=== PATIENT | male | born 1970 | race Caucasian/White ===

== ENCOUNTER 2020-09-26 21:07 | Emergency (ER) | payer OTHER ==
[2020-09-27 02:28] LABS: Absolute Lymphocytes (CBC) 2.7 K/uL (0.7-4.9); Basophils % 1.1 % (0-1.3); Hematocrit 47.9 % (39.6-49.0); Lymphocytes % 25.5 % (15.3-44.8); MPV 7.5 fL (7.6-11.3); Protime INR 0.98; RBC Red Blood Cell Count 5.54 M/uL (4.33-5.43)
[2020-09-27 02:44] LABS: ALT/SGPT 40 U/L (12-78); AST/SGOT 27 U/L (15-37); Albumin 3.6 g/dL (3.4-5.0); Alkaline Phosphatase 75 U/L (45-117); BUN Blood Urea Nitrogen 15 mg/dL (7-18); Bicarbonate 30 mmol/L (21-32); Bilirubin Direct < 0.1 mg/dL (0-0.2); Bilirubin Total 0.4 mg/dL (0.2-1.0); Glucose Level 84 mg/dL (74-106); Magnesium 2.1 mg/dL (1.8-2.4); NT PRO-BNP 20 pg/mL (<125); Protein, Total 7.3 g/dL (6.4-8.2); Sodium Level 142 mmol/L (136-145); Troponin (Emerg Dept Use Only) < 0.02 ng/mL (0.0-0.045)
--- NOTE | 2020-09-27 07:57 | RAD REPORT ---
EXAM DESCRIPTION: US - Extremity Venous Uni Ltd - 09/27/2020 7:06 am CLINICAL HISTORY: PAIN, swelling COMPARISON: None. TECHNIQUE: Real-time sonographic evaluation of the right lower extremity deep venous systems was per formed. FINDINGS: Normal compressibility, flow augmentation, phasic flow and spontaneous flow are identified in the right lower extremity common femoral, superficial femoral, popliteal and posterior tibial vei ns. No intraluminal filling defects seen. IMPRESSION: No DVT in the right lower extremity.
--- NOTE | 2020-09-27 07:59 | EKG ---
Test Date: 2020-09-27 Test Time: 02:04:14 [employer] Trader: MEASUREMENT RESULTS: Intervals: Rate: 64 [place]: 154 QRSD: 94 QT: 396 QTc: 408 [place]: P: 39 NJ: 154 QRS: 59 T: 35 INTERPRETIVE STATEMENTS: Normal sinus rhythm Normal ECG No previous ECG available for comparison Electronically Signed On 09-27-20 07:57:33 CDT by Keith Frankel
--- NOTE | 2020-09-27 07:59 | RAD REPORT ---
EXAM DESCRIPTION: RAD - Chest Single View - 09/27/2020 2:04 am CLINICAL HISTORY: COUGH COMPARISON: None TECHNIQUE: AP portable chest image was obtained 09/27/2020 2:04 am . FINDINGS: Exam is limited by portable technique, shallow inspiration and large body habitus. No tere pheral mass or consolidations seen. Stranding is more prominent in the right base. On a baseline stud y a right base infiltrate cannot be excluded. Pericardial fat pads contribute to lung base density. F ailure or volume overload are not suspected. Heart and vasculature are normal. No measurable pleural effusion and no pneumothorax. No acute bony abnormality seen. No acute aortic findings suspected. IMPRESSION: Increased interstitial stranding in the right lung base on a baseline examination. As a baseline study, infiltrate and atelectasis in the right base can have a similar appearance.
--- NOTE | 2020-09-27 17:53 | EDPHYS ---
Physician Documentation [facility] Name: Meliton Morales II Age: 49 yrs Sex: Male : 1970 Arrival Date: 09/26/2020 Time: 22:01 Bed 13 Private MD: INDIRA Physician Chase Johnson HPI: 09/27 01:16 This 49 yrs old Male presents to ER via Wheelchair with complaints of Leg henry Swelling, painful with knots. 01:16 The patient presents with pain, swelling. The complaints affect the right leg and left henry leg. Context: The problem was sustained at an unknown site, resulted from an unknown cause. Onset: The symptoms/episode began/occurred 3 day(s) ago. Modifying factors: The symptoms are alleviated by elevating leg, the symptoms are aggravated by movement, weight bearing. Associated signs and symptoms: The patient has no apparent associated signs or symptoms. Treatment prior to arrival includes: no previous treatment. Severity of symptoms: At their worst the symptoms were mild, in the emergency department the symptoms are unchanged. The patient has experienced a previous episode, many years ago. Historical: - Allergies: 09/26 23:13 PENICILLINS; kg - Home Meds: 23:13 olmesartan-hydrochlorothiazide oral [Active]; Bevespi Aerosphere 9-4.8 mcg inhalation kg HFAA [Active]; - PMHx: 23:13 Hypertensive disorder; Hypercholesterolemia; Low T; COPD; kg - PSHx: 23:13 right hand sx; kg - Immunization history:: Adult Immunizations up to date, Client reports receiving the 2nd dose of the Covid vaccine. - Social history:: Smoking status: Patient denies any tobacco usage or history of. Patient uses alcohol, occasionally. - Family history:: not pertinent. ROS: 09/27 01:16 Constitutional: Negative for fever, chills, and weight loss, Eyes: Negative for injury, henry pain, redness, and discharge, ENT: Negative for injury, pain, and discharge, Neck: Negative for injury, pain, and swelling, Cardiovascular: Negative for chest pain, palpitations, and edema, Respiratory: Negative for shortness of breath, cough, wheezing, and pleuritic chest pain, Abdomen/GI: Negative for abdominal pain, nausea, vomiting, diarrhea, and constipation, Back: Negative for injury and pain, : Negative for injury, bleeding, discharge, and swelling, Skin: Negative for injury, rash, and discoloration, Neuro: Negative for headache, weakness, numbness, tingling, and seizure, Psych: Negative for depression, anxiety, suicide ideation, homicidal ideation, and hallucinations, Allergy/Immunology: Negative for hives, rash, and allergies, Endocrine: Negative for neck swelling, polydipsia, polyuria, polyphagia, and marked weight changes. MS/extremity: Positive for pain, swelling, of the right leg and left leg. Exam: :16 Constitutional: This is a well developed, well nourished patient who is awake, alert, henry and in no acute distress. Head/Face: Normocephalic, atraumatic. Eyes: Pupils equal round and reactive to light, extra-ocular motions intact. Lids and lashes normal. Conjunctiva and sclera are non-icteric and not injected. Cornea within normal limits. Periorbital areas with no swelling, redness, or edema. ENT: Nares patent. No nasal discharge, no septal abnormalities noted. Tympanic membranes are normal and external auditory canals are clear. Oropharynx with no redness, swelling, or masses, exudates, or evidence of obstruction, uvula midline. Mucous membranes moist. Neck: Trachea midline, no thyromegaly or masses palpated, and no cervical lymphadenopathy. Supple, full range of motion without nuchal rigidity, or vertebral point tenderness. No Meningismus. Chest/axilla: Normal chest wall appearance and motion. Nontender with no deformity. No lesions are appreciated. Cardiovascular: Regular rate and rhythm with a normal S1 and S2. No gallops, murmurs, or rubs. Normal PMI, no JVD. No pulse deficits. Respiratory: Lungs have equal breath sounds bilaterally, clear to auscultation and percussion. No rales, rhonchi or wheezes noted. No increased work of breathing, no retractions or nasal flaring. Abdomen/GI: Soft, non-tender, with normal bowel sounds. No distension or tympany. No guarding or rebound. No evidence of tenderness throughout. Back: No spinal tenderness. No costovertebral tenderness. Full range of motion. Male : Normal genitalia with no discharge or lesions. Skin: Warm, dry with normal turgor. Normal color with no rashes, no lesions, and no evidence of cellulitis. Neuro: Awake and alert, GCS 15, oriented to person, place, time, and situation. Cranial nerves II-XII grossly intact. Motor strength 5/5 in all extremities. Sensory grossly intact. Cerebellar exam normal. Normal gait. Psych: Awake, alert, with orientation to person, place and time. Behavior, mood, and affect are within normal limits. 01:16 Musculoskeletal/extremity: Extremities: decreased ROM, pain, swelling, ROM: full active range of motion, full passive range of motion, Circulation is intact in all extremities. Sensation intact. Compartment Syndrome exam of affected extremity: is normal. DVT Exam: negative Homans' sign noted on exam, no appreciated bluish discoloration, no erythema, no increased warmth, pain, swelling, tenderness. 02:25 ECG was reviewed by the Attending Physician. [facility] Vital Signs: 09/26 23:07 BP 154 / 107; Pulse 73; Resp 20; Temp 98.1(TE); Pulse Ox 99% on R/A; Weight 133.81 kg kg (R); Height 5 ft. 10 in. (177.80 cm) (R); Pain 6/10; 09/27 02:20 BP 146 / 84; Pulse 74; Resp 20; Pulse Ox 99% on R/A; ak2 09/26 23:07 Body Mass Index 42.33 (133.81 kg, 177.80 cm) kg MDM: 01:06 Patient medically screened. [facility] 01:18 Differential diagnosis: contusion, tendonitis. Data reviewed: vital signs, nurses [facility] notes, lab test result(s), EKG, radiologic studies, plain films. Data interpreted: microbiology lab manager: rate is 73 beats/min, rhythm is regular, Pulse oximetry: on room air is 99 %. Test interpretation: by ED physician or midlevel provider: ECG, plain radiologic studies. Counseling: I had a detailed discussion with the patient and/or guardian regarding: lab results, radiology results, the need for outpatient follow up, for definitive care, a budget record clerk, a family practitioner. Medical screen evaluation completed. [facility] emergency medical condition absent. 09/27 01:15 Order name: Basic Metabolic Panel [facility] 09/27 01:15 Order name: CBC with Diff [facility] 09/27 01:15 Order name: LFT's; Complete Time: 03:00 [facility] 09/27 01:15 Order name: Magnesium; Complete Time: 03:00 [facility] 09/27 01:15 Order name: NT PRO-BNP; Complete Time: 03:00 [facility] 09/27 01:15 Order name: PT-INR; Complete Time: 03:00 [facility] 09/26 23:21 Order name: Extremity Venous Uni Ltd US kg 09/27 01:15 Order name: Troponin (emerg Dept Use Only); Complete Time: 03:00 [facility] 09/27 01:15 Order name: XRAY Chest (1 view) [facility] 09/27 01:15 Order name: EKG; Complete Time: 01:16 [facility] 09/27 01:15 Order name: Basic Metabolic Panel; Complete Time: 03:00 ED[facility] 09/27 01:15 Order name: CBC with Automated Diff; Complete Time: 03:00 [facility] 09/27 01:15 Order name: Cardiac monitoring [facility] 09/27 01:15 Order name: EKG - Nurse/Tech [facility] 09/27 01:15 Order name: IV Saline Lock [facility] 09/27 01:15 Order name: Labs collected and sent [facility] 09/27 01:15 Order name: O2 Per Protocol [facility] 09/27 01:15 Order name: O2 Sat Monitoring [facility] 09/27 01:15 Order name: Urine Dipstick-Ancillary (obtain specimen) [facility] EC:25 Rate is 64 beats/min. Rhythm is regular. QRS [place] is Normal. MA interval is normal. QRS henry interval is normal. QT interval is normal. No Q waves. T waves are Normal. No ST changes noted. Clinical impression: Normal ECG and No evidence of ischemia. Interpreted by me. Reviewed by me. Administered Medications: Drug: NS 0.9% 1000 ml Route: IV; Rate: 125 ml/hr; Site: left antecubital; ak2 Disposition Summary: 09/27/20 03:00 Discharge Ordered Location: Home henry Problem: new henry Symptoms: have improved henry Condition: Stable henry Diagnosis - Edema, unspecified henry - Morbid (severe) obesity due to excess calories henry - Essential (primary) hypertension henry Followup: henry - With: Private Physician - When: 2 - 3 days - Reason: Recheck today's complaints, Continuance of care, Re-evaluation by your physician Followup: henry - With: - When: 2 - 3 days - Reason: Recheck today's complaints, Re-evaluation by your physician Discharge Instructions: - Discharge Summary Sheet henry - Edema henry - Hypertension, Adult henry - Obesity, Adult henry - Hypertension, Adult, Gyke-yr-Uval henry - Edema, [id number] henry - How to Take Your Blood Pressure, Kzet-nb-[id number] henry - Aspirin and Your Heart henry - Managing Your Hypertension henry - Obesity, Adult, [id number] henry - Peripheral Edema henry Forms: - Medication Reconciliation Form henry - Thank You Letter henry - Antibiotic Education henry - Prescription Opioid Use henry Signatures: Dispatcher [employer] EDChase Fritz MD MD cha Graham, Kristen, RN RN Rey Garcia
--- NOTE | 2020-09-27 17:53 | ER ---
Nurse's Notes [facility] Name: Meliton Morales II Age: 49 yrs Sex: Male : 1970 Arrival Date: 09/26/2020 Time: 22:01 Bed 13 Private MD: Diagnosis: Edema, unspecified;Morbid (severe) obesity due to excess calories;Essential (primary) hypertension Presentation: 09/26 23:07 Chief complaint: Patient states: Swelling and pain in the right leg starting Saturday. kg Coronavirus screen: Client denies travel out of the [place] in the last 14 days. At this time, unable to obtain information related to travel outside the [place] At this time, the client does not indicate any symptoms associated with coronavirus-19. Ebola Screen: Patient negative for fever greater than or equal to 101.5 degrees Fahrenheit, and additional compatible Ebola Virus Disease symptoms Patient denies exposure to infectious person. Patient denies travel to an Ebola-affected area in the 21 days before illness onset. Initial Sepsis Screen: Does the patient meet any 2 criteria? No. Patient's initial sepsis screen is negative. Does the patient have a suspected source of infection? No. Patient's initial sepsis screen is negative. Risk Assessment: Do you want to hurt yourself or someone else? Patient reports no desire to harm self or others. Onset of symptoms was September 23, 2020. 23:07 Method Of Arrival: Wheelchair kg 23:07 Acuity: SHANNAN 3 kg Triage Assessment: 23:13 General: Appears in no apparent distress. Behavior is calm, cooperative, appropriate kg for age, quiet. Pain: Complains of pain in right leg Pain currently is 6 out of 10 on a pain scale. at worst was 9 out of 10 on a pain scale. level that patient reports is acceptable is 5 out of 10 on a pain scale. Historical: - Allergies: 23:13 PENICILLINS; kg - Home Meds: 23:13 olmesartan-hydrochlorothiazide oral [Active]; Bevespi Aerosphere 9-4.8 mcg inhalation kg HFAA [Active]; - PMHx: 23:13 Hypertensive disorder; Hypercholesterolemia; Low T; COPD; kg - PSHx: 23:13 right hand sx; kg - Immunization history:: Adult Immunizations up to date, Client reports receiving the 2nd dose of the Covid vaccine. - Social history:: Smoking status: Patient denies any tobacco usage or history of. Patient uses alcohol, occasionally. - Family history:: not pertinent. Screenin:18 Abuse screen: Denies threats or abuse. Denies injuries from another. Nutritional kg screening: No deficits noted. Tuberculosis screening: No symptoms or risk factors identified. Fall Risk None identified. Assessment: 09/27 02:20 Reassessment: Patient and/or family updated on plan of care and expected duration. Pain ak2 level reassessed. General: Appears in no apparent distress. Pain: Denies pain. Neuro: No deficits noted. Cardiovascular: No deficits noted. Respiratory: No deficits noted. Vital Signs: 09/26 23:07 BP 154 / 107; Pulse 73; Resp 20; Temp 98.1(TE); Pulse Ox 99% on R/A; Weight 133.81 kg kg (R); Height 5 ft. 10 in. (177.80 cm) (R); Pain 6/10; 09/27 02:20 BP 146 / 84; Pulse 74; Resp 20; Pulse Ox 99% on R/A; ak2 09/26 23:07 Body Mass Index 42.33 (133.81 kg, 177.80 cm) kg ED Course: 09/26 22:01 Patient arrived in ED. es 23:13 Triage completed. kg 23:13 Arm band placed on right wrist. kg 23:18 Patient has correct armband on for positive identification. kg 09/27 01:06 Chase Johnson MD is Attending Physician. henry 02:04 XRAY Chest (1 view) In Process Unspecified. EDMS 03:00 Keith Frankel MD is Referral Physician. henry 03:19 No provider procedures requiring assistance completed. IV discontinued. ak2 07:06 Extremity Venous Uni Ltd US In Process Unspecified. EDMS Administered Medications: 01:23 Drug: NS 0.9% 1000 ml Route: IV; Rate: 125 ml/hr; Site: left antecubital; ak2 Outcome: 03:00 Discharge ordered by . henry 03:19 Discharged to home ambulatory. ak2 03:19 Condition: good 03:19 Discharge instructions given to patient. 03:19 Patient left the ED. ak2 Signatures: Dispatcher [employer] EDMS Chase Johnson MD MD cha Salyer, Edna es Graham Syeda, RN RN kg Rey Molina nj2
[2020-09-28 18:45] VITALS: TEMP 98.1; O2SAT 99
[2020-09-28 18:47] VITALS: BP 146/84
== END 2020-09-27 03:19 | disposition home or self-care (01) ==
LOC: ER 21:07
DX: R60.9 Edema, unspecified (principal); M79.604 Pain in right leg; E66.01 Morbid (severe) obesity due to excess calories; I10 Essential (primary) hypertension; E78.00 Pure hypercholesterolemia, unspecified; J44.9 Chronic obstructive pulmonary disease, unspecified; Z88.0 Allergy status to penicillin
CPT/HCPCS: 36415; 71045; 80048; 80076; 83735; 83880; 84484; 85025; 85610; 93005; 93971

== ENCOUNTER 2021-06-13 19:59 | Observation (INO) | payer OTHER ==
--- OUTSIDE RECORDS SUMMARY | 2021-06-13 20:03 | XMS REPORT | Continuity of Care Document ---
:1970 Author Organization [facility] t Address [address] [place] [address] Care Team Providers Name Role Phone Thanh Tavares Primary Care Physician ALICE Attending Clinician Unavailable Dat Morejon Attending Clinician Unavailable LAURO Attending Clinician Unavailable CRISTEL Attending Clinician Unavailable MARIA DOLORES Attending Clinician Unavailable Derik IVERSON Attending Clinician MATTHIAS Attending Clinician Unavailable Duran ROSE Attending Clinician MAURICIO LANGSTON Attending Clinician Unavailable VIJAY Attending Clinician Unavailable Dat Morejon Admitting Clinician Unavailable Payers Payer Name Policy Type Policy Number Effective Date Expiration Date Juan GARCIANA CHOICE POS [id number] 1996 00:00:00 II Problems Condition Condition Condition Status Onset Resolution Last Treating Co mments Source Name Details Category Date Date Treatment Clinician Date Chronic Chronic Disease Active [place] venous venous 11-29 Health insufficie insufficie 00:00: ncy ncy 00 Varicose Varicose Disease Active [place] veins of veins of 11-04 Health lower limb lower limb 00:00: without without 00 ulcer or ulcer or inflammati inflammati on, on, bilateral bilateral Stasis Stasis Disease Active [facility] dermatitis dermatitis 11-04 He alth of both of both 00:00: legs legs 00 Leg pain, Leg pain, Disease Active [facility] bilateral bilateral 11-03 Heal th 00:00: 00 Localized Localized Disease Active [place] swelling swelling 11-03 Health of both of both 00:00: lower legs lower legs 00 SPLIT Diagnosis Active 2019-10-30 Mem oria NIGHT 10-15 19:50:00 l [id number] SPLIT 00:00: [place] NIGHT 00 [id number] Active 10/16/2019 [place] Fracture Problem Resolve 2020-12-04 Me moria of d 01:07:59 l shoulder Fracture Herm maribell (disorder) of shoulder (disorder) [facility] Hyperchole Problem Resolve 2020-12-04 Memoria sterolemia d 01:07:59 l (disorder) Brandon n Hyperchole sterolemia (disorder) Resolved Problem 12/04/2020 Medical Group,[facility] Hypertensi Problem Resolve 2020-12-04 Memoria ve d 01:07:59 l disorder, [place] systemic Hypertensi arterial ve (disorder) disorder, systemic arterial (disorder) Resolved Problem 12/04/2020 [facility] Morbid Problem Active 2020-12-04 Memor ia obesity 01:07:59 l (disorder) Morbid Herm maribell obesity (disorder) Active Problem 12/04/2020 [facility] Arthritis Problem Active 2020-12-04 Me moria of knee 01:07:59 l (disorder) Brandon n Arthritis of knee (disorder) Active Problem 12/04/2020 Medical [facility] Edema of Problem Active 2020-12-04 Mem oria lower 01:07:59 l extremity Edema of Her dominguez (finding) lower extremity (finding) Active Problem 12/04/2020 Medical Group Sleep Problem Active 2020-12-04 Memor ia apnea 01:07:59 l (finding) Sleep Brandon n apnea (finding) Active Problem 12/04/2020 [facility] Allergies, Adverse Reactions, Alerts Allergy Allergy Status Severity Reaction(s) Onset Inactive Treating Comm ents Source Name Type Date Date Clinician Penicill DA Active U 2020-03 [facility] ins 0-11 Clear 00:00: Clifford 00 [facility] Penicill DA Active U UNKNOWN 2020-03 [facility] ins 0-11 Clear 00:00: Clifford 00 [facility] Penicill Propensi Active [facility] ins ty to 11-04 Health adverse 00:00: reaction 00 s penicill penicill Active Memori a ins ins l [place] Social History Social Habit Start Date Stop Date Quantity Comments Source History of Chews Tobacco [place] [facility] tobacco use Tobacco use and 2020-11-04 2020-11-04 User of smokeless [facility] exposure 00:00:00 00:00:00 tobacco Social History 2019-12-02 2019-12-02 [facility] 18:57:46 18:57:46 Sex Ass[birth year] At [birth year] [place] [facility] 00:00:00 00:00:00 Smoking Status Start Date Stop Date Source Social History [facility] Medications Ordered Filled Start Stop Current Ordering Indication Dosage Frequency Signature Comments Components Source Medication Medication Date Date Medication? Clinician (SIG) Name Name diazePAM Yes 17 2mg UT (Valium) 2-25 Health tablet 2 mg 06:00: 00 diazePAM Yes 17 2mg UT (Valium) 2-25 Health tablet 2 mg 06:00: 00 clindamycin 2021- Yes [id number] 600mg Take 2 UT (Cleocin) 2-25 02-26 capsules Healt h 300 MG 00:00: 05:59 (600 mg capsule 00 :00 total) by mouth 1 (one) time for 1 dose. Bring medication to office day of procedure. Will be taken upon arrival. avanafil Yes 200 mg = 1 Mem oria 200 MG Oral 9-30 tab, PO, l Tablet 15:27: Daily, 30 Brandon n [Stendra] 00 minutes before sexual activity, # 10 tab, 5 Refill(s), Pharmacy: [facility] [id number], 185.42, cm, 10/20/20 16:15:00 CDT, Height, 140.909, kg, 10/05/20 15:45:00 CDT, Weight hydroCHLORO Yes 40mg QD Take 40 mg UT thiazide 9-03 by mouth 1 Healt h (HYDRODiuri 08:48: (one) time l) 25 MG 58 each day. tablet hydroCHLORO Yes 40mg QD Take 40 mg [place] thiazide 9-03 by mouth 1 Healt h (HYDRODiuri 08:48: (one) time l) 25 MG 58 each day. tablet hydroCHLORO 2020-0 Yes 40mg QD Take 40 mg UT thiazide 9-03 by mouth 1 Healt h (HYDRODiuri 08:48: (one) time l) 25 MG 58 each day. tablet hydroCHLORO 2020-0 Yes 40mg QD Take 40 mg UT thiazide 9-03 by mouth 1 Healt h (HYDRODiuri 08:48: (one) time l) 25 MG 58 each day. tablet testosteron 0 No 400 mg, Mem oria e cypionate 11-03 Route: IM, l 16:00: ONCE, [place] 00 Dosing Weight 140.909, kg, Start date: 11/03/20 11:00:00 CDT, Stop date: 11/03/20 11:00:00 CDT, Patient's Own Meds Furosemide 2020-0 Yes 40 mg = 1 Me moria 40 MG Oral 8-19 tab, PO, l Tablet 21:48: Daily, # Jerrod 00 30 tab, 1 Refill(s), Pharmacy: [facility] [id number], 185.42, cm, 10/20/20 16:15:00 CDT, Height, 140.909, kg, 10/05/20 15:45:00 CDT, Weight Potassium 2020-0 Yes 20 mEq = 1 Me moria Chloride 8-19 tab, PO, l (Eqv-Klor-C 21:48: BID, # 30 H ermann on M20) 20 00 tab, 1 mEq oral Refill(s), tablet, Pharmacy: [facility] [id number], 185.42, cm, 10/20/20 16:15:00 CDT, Height, 140.909, kg, 10/05/20 15:45:00 CDT, Weight furosemide 2020-0 Yes UT (Lasix) 40 8-19 Health MG tablet 00:00: 00 potassium 2020-0 Yes UT chloride CR 8-19 Health (K-Tab) 20 00:00: MEQ ER 00 tablet furosemide 2020-0 Yes UT (Lasix) 40 8-19 Health MG tablet 00:00: 00 potassium 2020-0 Yes UT chloride CR 8-19 Health (K-Tab) 20 00:00: MEQ ER 00 tablet furosemide 0 Yes UT (Lasix) 40 8-19 Health MG tablet 00:00: 00 potassium 2020-0 Yes UT chloride CR 8-19 Health (K-Tab) 20 00:00: MEQ ER 00 tablet furosemide 0 Yes UT (Lasix) 40 8-19 Health MG tablet 00:00: 00 potassium 2020-0 Yes UT chloride CR 8-19 Health (K-Tab) 20 00:00: MEQ ER 00 tablet predniSONE 0 Yes See Memoria 5 mg oral 8-12 Instructio l tablet 18:39: ns, 4 [place] 00 tablets daily x 3 days then 3 tablets daily x 3 days then 2 tablets daily x 3 days, # 27 tab, 0 Refill(s), Pharmacy: [facility] [id number], 208.28, cm, 10/05/20 15:45:00 CDT, Height, 140.909, kg, 10/05/20 15:45:00 CDT, Weight allopurinol Yes 100 mg = 1 Memoria 100 mg oral -12 tab, PO, l tablet 18:39: Daily, # [place] 00 90 tab, 3 Refill(s), Pharmacy: [facility] [id number], 208.28, cm, 10/05/20 15:45:00 CDT, Height, 140.909, kg, 10/05/20 15:45:00 CDT, Weight allopurinol 0 Yes UT (Zyloprim) 8-12 Health 100 MG 00:00: tablet 00 allopurinol 0 Yes UT (Zyloprim) 8-12 Health 100 MG 00:00: tablet 00 allopurinol 0 Yes UT (Zyloprim) 8-12 Health 100 MG 00:00: tablet 00 allopurinol 2020-0 Yes UT (Zyloprim) 8-12 Health 100 MG 00:00: tablet 00 Testosteron Yes See Memori a e Cypionate 10-05 Instructio l 200 mg/mL 21:36: ns, 2 ml Herm maribell intramuscul 00 IM q4wk, # ar solution 12 mL, 0 Refill(s), Pharmacy: [facility] [id number], 208.28, cm, 10/05/20 15:45:00 CDT, Height, 140.909, kg, 10/05/20 15:45:00 CDT, Weight testoster2020 No 400 mg, Mem oria e cypionate 8-04 Route: IM, l 21:30: ONCE, [place] 00 Dosing Weight 140.909, kg, Start date: 10/05/20 16:30:00 CDT, Stop date: 10/05/20 16:30:00 CDT, Patient's Own Meds { Yes See Memoria (Methylpred 8-03 Instructio l nisolone 4 16:22: ns, PO, as H ermann MG Oral 00 directed Tablet on package [Medrol]) } labeling, Pack X 6 day, # [Medrol 1 ea, 0 Dosepak] Refill(s), Pharmacy: [facility] [id number], 208.28, cm, 10/03/20 9:11:00 CDT, Height, 137.364, kg, 10/03/20 9:11:00 CDT, Weight Hydrochloro Yes 1 tab, PO, Memoria thiazide 7-27 Daily, # l 12.5 MG / 19:19: 90 tab, 0 Her dominguez Olmesartan 00 Refill(s), medoxomil Pharmacy: 40 MG Oral [facility] [id number], 177.8, cm, 09/27/20 13:59:00 CDT, Height, 140.909, kg, 09/27/20 13:59:00 CDT, Weight Sulfamethox Yes 1 tab, PO, Memoria azole 800 7-27 BID, X 10 l MG / 19:15: day, # 20 [place] Trimethopri 00 tab, 0 m 160 MG Refill(s), Oral Tablet Pharmacy: [Bactrim] [facility] [id number], 177.8, cm, 09/27/20 13:59:00 CDT, Height, 140.909, kg, 09/27/20 13:59:00 CDT, Weight testosteron Yes See Memori a e cypionate 7-06 Instructio l 200 mg/mL 17:17: ns, 2 ml Herm maribell intramuscul 00 IM q4wk, # ar solution 12 mL, 0 Refill(s), [facility]: [facility], 177.8, cm, 06/10/20 15:35:00 CDT, Height, 135.455, kg, 06/10/20 15:35:00 CDT, Weight testosteron 0 No 400 mg, Mem oria e cypionate 7-06 Route: IM, l 15:00: ONCE, Dosing Weight 135.455, kg, Start date: 09/06/20 10:00:00 CDT, Stop date: 09/06/20 10:00:00 CDT, Patient's Own Meds testosteron 2020-0 Yes UT e cypionate 7-06 Health (Depo-Testo 00:00: sterone) 00 200 MG/ML injection testosteron 2020-0 Yes UT e cypionate 7-06 Health (Depo-Testo 00:00: sterone) 00 200 MG/ML injection testosteron 2020-0 Yes UT e cypionate 7-06 Health (Depo-Testo 00:00: sterone) 00 200 MG/ML injection testosteron 2020-0 Yes UT e cypionate 7-06 Health (Depo-Testo 00:00: sterone) 00 200 MG/ML injection testosteron 2020-0 No 400 mg, Mem oria e cypionate 6-09 Route: IM, l 15:00: ONCE, Dosing Weight 135.455, kg, Start date: 08/10/20 10:00:00 CDT, Stop date: 08/10/20 10:00:00 CDT, Patient's Own Meds testosteron 2020-0 No 400 mg, Mem oria e cypionate 5-10 Route: IM, l 15:00: ONCE, Dosing Weight 135.455, kg, Start date: 07/11/20 10:00:00 CDT, Stop date: 07/11/20 10:00:00 CDT sildenafil 2020-1 Yes 100 mg = 1 M emoria 100 MG Oral 2-18 tab, PO, l Tablet 21:51: Daily, # Jerrod 00 30 tab, 3 Refill(s), Pharmacy: [facility] 321, 177.8, cm, 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, 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, 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, kg, 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, Weight Anoro 2019-1 Yes [facility] Ellipta 2-01 Health 62.5-25 00:00: MCG/INH 00 aerosol powder Anoro 2019- Yes [facility] Ell[place] 2- Health 62.5-25 00:00: MCG/INH 00 aerosol powder Anoro 2019- Yes [place] 2- Health 62.5-25 00:00: MCG/INH 00 aerosol powder Anoro 2019- Yes [place] 2- Health 62.5-25 00:00: MCG/INH 00 aerosol powder testosteron 2019-03 No 400 mg, Mem oria e cypionate 1-23 Route: IM, l 17:00: ONCE, Jerrod 00 Dosing Weight 134.091, kg, Start date: 01/25/20 11:00: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, Stop date: 01/25/20 11:00: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, Patient's Own Meds testosteron 2019-03 No 50 mg, Esteban giorgio e cypionate 0 Route: l 22:02: SUB-Q, Jerrod 00 ONCE, Dosing Weight 134.091, kg, Start date: 12/25/19 17:02:00 CDT, Stop date: 12/25/19 17:02:00 CDT pantoprazol 2019- Yes 40 mg = 1 M emoria e 40 mg 9-30 tab, PO, l oral 19:15: Daily, # Jerrod enteric 00 90 tab, 0 coated Refill(s), tablet Pharmacy: [facility] 321, 177.8, cm, 12/02/19 13:56:00 CDT, Height, 134.364, kg, 12/02/19 13:56:00 CDT, Weight 120 ACTUAT 2020-0 Yes 2 puff, Esteban giorgio formoterol 9-30 INHALATION l fumarate 19:09: , BID, # Roselia nn 0.0048 00 11 gm, 0 MG/ACTUAT / Refill(s), Glycopyrrol Pharmacy: ate 0.009 [facility] MG/ACTUAT [facility] Metered 321, Dose 177.8, cm, Inhaler 12/02/19 [Bevespi] 13:56:00 CDT, Height, 134.364, kg, 12/02/19 13:56:00 CDT, Weight testosteron Yes See Memori a e cypionate 8-12 Instructio l 200 mg/mL 20:57: ns, 2 ml Herm maribell intramuscul 00 IM q4wk, # ar solution 12 mL, 0 Refill(s) Zipsor Yes 25 mg, PO, Memor ia 7-22 QID, 0 l 21:34: Refill(s) [place] 00 Immunizations Ordered Immunization Filled Immunization Date Status Commen ts Source Name Name [id number] 2020-06-13 Completed Esteban rial 26vaxJANSSEN 00:00:00 [place] Hx influenza 2019-12-02 Completed [facility] vaccine-unspecified< 00:00:00 Herm maribell sup>1</sup> Vital Signs Vital Name Observation Time Observation Value Comments Source Systolic (mm Hg) 2020-10-20 21:15:00 Esteban rial [place] Diastolic (mm Hg) 2020-10-20 21:15:00 Mem orial [place] Heart Rate 2020-10-20 21:15:00 [facility] [place] Temperature Oral (F) 2020-10-20 21:15:00 98.3 F [facility] [place] Height 2020-10-20 21:15:00 185.42 cm [facility] [place] Height 2020-10-05 20:45:00 208.28 cm [facility] [place] Weight 2020-10-05 20:45:00 [facility] [place] BMI Calculated 2020-10-05 20:45:00 Memori al [place] Systolic (mm Hg) 2020-10-03 14:11:00 Esteban rial [place] Diastolic (mm Hg) 2020-10-03 14:11:00 Mem orial [place] Heart Rate 2020-10-03 14:11:00 [facility] [place] Respitory Rate 2020-10-03 14:11:00 Memori al [place] Temperature Oral (F) 2020-10-03 14:11:00 98.7 F [facility] [place] Height 2020-10-03 14:11:00 208.28 cm [facility] [place] Weight 2020-10-03 14:11:00 [facility] [place] BMI Calculated 2020-10-03 14:11:00 Memori al [place] Systolic (mm Hg) 2020-09-27 18:59:00 Esteban rial [place] Diastolic (mm Hg) 2020-09-27 18:59:00 Mem orial [place] Heart Rate 2020-09-27 18:59:00 [facility] [place] Respitory Rate 2020-09-27 18:59:00 Memori al [place] Temperature Oral (F) 2020-09-27 18:59:00 98.6 F [facility] [place] Height 2020-09-27 18:59:00 177.8 cm [facility] [place] Weight 2020-09-27 18:59:00 [facility] [place] BMI Calculated 2020-09-27 18:59:00 Memori al [place] Temperature Oral (F) 2020-06-10 20:35:00 97.4 F [facility] [place] Height 2020-06-10 20:35:00 177.8 cm [facility] [place] Weight 2020-06-10 20:35:00 [facility] [place] BMI Calculated 2020-06-10 20:35:00 Memori al [place] Temperature Oral (F) 2020-02-19 21:39:00 97.8 F [facility] [place] Height 2020-02-19 21:39:00 177.8 cm [facility] [place] Weight 2020-02-19 21:39:00 [facility] [place] BMI Calculated 2020-02-19 21:39:00 Memori al [place] Temperature Oral (F) 2019-12-25 21:19:00 98.6 F [facility] [place] Height 2019-12-25 21:19:00 177.8 cm [facility] [place] Weight 2019-12-25 21:19:00 [facility] [place] BMI Calculated 2019-12-25 21:19:00 Memori al [place] Systolic (mm Hg) 2019-12-02 18:56:00 Esteban rial [place] Diastolic (mm Hg) 2019-12-02 18:56:00 Mem orial [place] Heart Rate 2019-12-02 18:56:00 [facility] [place] Respitory Rate 2019-12-02 18:56:00 Memori al [place] Temperature Oral (F) 2019-12-02 18:56:00 98.0 F [facility] [place] Height 2019-12-02 18:56:00 177.8 cm [facility] [place] Weight 2019-12-02 18:56:00 [facility] [place] BMI Calculated 2019-12-02 18:56:00 Memori al [place] Temperature Oral (F) 2019-10-14 20:35:00 97.8 F [facility] [place] Height 2019-10-14 20:35:00 177.8 cm [facility] [place] Weight 2019-10-14 20:35:00 [facility] [place] BMI Calculated 2019-10-14 20:35:00 Memori al [place] Temperature Oral (F) 2019-09-23 21:23:00 97.8 F [facility] [place] Height 2019-09-23 21:23:00 177.8 cm [facility] [place] Weight 2019-09-23 21:23:00 [facility] [place] BMI Calculated 2019-09-23 21:23:00 Memori al [place] Procedures Procedure Date / Time Performed Performing Clinician [facility] elizabeth Subcutaneous hormone 2020-09-06 15:30:00 Jose dawson [place] pellet implantation (implantation of estradiol and/or testosterone pellets beneath the skin) Encounters Start End Encounter Admission Attending Care Care Encounter Source Date/Time Date/Time Type Type Clinicians Facility Department ID 2021-06-09 Outpatient [facility] [id number] [place] 08:16:29 [id number] [facility] 2021-05-25 Outpatient ALICE, [facility] [id number] [place] 10:39:01 [facility] [id number] [facility] 2021-05-24 Outpatient [facility] [id number] [place] 09:06:34 [id number] [facility] 2021-04-21 Outpatient [facility] [id number] [place] 13:37:34 [facility] 2021-04-20 Outpatient ALICE, [facility] [id number] [place] 09:19:14 [facility] 2021-01-31 Outpatient ALICE, [facility] [id number] [place] 15:46:35 [facility] 2020-12-15 [facility] [id number] 14:00:00 Sharad [id number] [facility] 2021-05-25 2021-05-25 Office Alice, [facility] [id number] [place] 10:30:00 11:30:10 Visit [facility] [id number] Anibal RODRÍGUEZ 1 [id number] 2021-04-28 2021-04-28 Procedure Alice [facility] [id number] [place] 08:00:00 08:38:31 Visit Flako [facility] [id number] [address] 1 [id number] 2021-03-09 2021-03-09 Office Alice [facility] [id number] [place] 10:00:00 11:26:22 Visit Flako [facility] [id number] [place] [address] 1 [id number] 2021-02-01 2021-02-01 Outpatient AMY RESTREPO [id number] Amy 00:00:00 00:00:00 [place] w[place] 2021-01-04 2021-01-04 Outpatient KANDI TALBOT [id number] Amy 00:00:00 00:00:00 MD Breanna GARCIA 2020-12-15 2020-12-15 Outpatient MERVAT PritchardBM DAYS [id number] [facility] 08:00:00 08:00:00 Sharad 81 [facility] 2020-12-12 2020-12-12 Outpatient ТАТЬЯНА Morejon LABO [id number] [facility] 22:52:00 22:52:00 Sharad [id number] [facility] 2020-12-08 2020-12-08 Outpatient AMY WHITTEN [id number] Amy 00:00:00 00:00:00 STANISLAW watts 2020-12-05 2020-12-05 Office Derik [facility] [id number] 11:33:42 12:08:45 Visit Kati [facility] [id number] [place] 1 [id number] 2020-12-01 2020-12-02 Outpatient nullFlavo [facility] [id number] Memoria 15:00:00 04:59:59 r Urology [address] [facility] 2020-11-30 2020-11-30 Outpatient AMY WHITTENSEY [id number] Amy 00:00:00 00:00:00 STANISLAW Seybol d 2020-11-22 2020-11-22 Outpatient AMY WHITTEN AMY [id number] Aym 00:00:00 00:00:00 STANISLAW Seybol d 2020-11-22 2020-11-22 Outpatient OLIVERAVILA TALBOT [id number] Amy 00:00:00 00:00:00 , MANJU Seybol d 2020-11-20 2020-11-20 Outpatient MARIA DOLORES AMY TALBOT [id number] Amy 00:00:00 00:00:00 STANISLAW Seybol d 2020-11-18 2020-11-18 Outpatient MARIA DOLORES AMY TALBOT [id number] Amy 00:00:00 00:00:00 STANISLAW Seybol d 2020-11-11 2020-11-11 Telephone OLIVIER Garzon [facility] [id number] 00:00:00 00:00:00 Olaide [facility] [id number] [place] 1 [id number] 2 2020-11-03 2020-11-04 Outpatient nullFlavo [facility] [id number] Memoria 16:15:00 04:59:59 r Urology 22 l Felipe Veloz [facility] 2020-11-03 2020-11-03 Office OLIVIER More [facility] [id number] [place] 12:24:51 15:05:38 Visit Kati [facility] [id number] [place] 1 [id number] 2 2020-10-20 2020 Outpatient nullFlavo [facility] [id number] Memoria 21:15:00 04:59:59 r Primary 23 l Care Eduardo Veloz 2020-10-13 2020-10-15 Phone nullFlavo MG [id number] Memoria 18:28:21 04:59:59 Message r Primary 01 l Jessi Veloz 2020-10-11 2020-10-11 Outpatient MATTHIAS TALBOT AMY [id number] Amy 10:00:00 10:00:00 MANJU 2020-10-05 2020-10-06 [place] [id number] Memoria 20:50:00 04:59:59 r Urology 18 l Felipe Veloz [facility] 2020-10-04 2020-10-05 Between nullFlavo MG [id number] Memoria 16:22:22 16:22:22 Visit r Primary 04 l Jessi Veloz 2020-10-05 2020-10-05 Outpatient MHIE MHIE [id number] Memoria 15:45:00 15:45:00 19 eunice Elder 2020-10-05 2020-10-05 Outpatient AMY LANGSTON [id number] Amy 13:00:00 13:00:00 [place] L[place] 2020-10-03 2020-10-04 Outpatient nullFlavo [facility] [id number] Memoria 14:00:00 04:59:59 r Primary 21 l Jessi Veloz 2020-10-04 2020-10-04 Outpatient KANDI TALBOT [id number] Amy 00:00:00 00:00:00 MD Oscar GARCIAybol mac 2020-09-27 2020-09-28 [place] [id number] Memoria 18:45:00 04:59:59 r Primary 20 l Jessi Veloz 2020-09-06 2020-09-07 [place] [id number] Memoria 15:00:00 04:59:59 r Urology 17 l Felipe Veloz [facility] 2020-08-10 2020-08-11 Outpatient nullFlavo [facility] [id number] Memoria 15:15:00 04:59:59 r Urology 16 eunice Felipe Veloz [facility] 2020-07-11 2020-07-12 Outpatient nullFlavo [facility] [id number] Memoria 15:00:00 04:59:59 r Urology 15 eunice Felipe Veloz [facility] 2020-06-17 2020-06-17 Ambulatory nullFlavo [facility] [id number] Memoria 20:50:00 20:50:00 Pre-Reg r Urology 08 l Felipe Veloz [facility] 2020-06-10 2020-06-11 [place] [id number] Memoria 20:40:00 04:59:59 r Urology 13 l Felipe Veloz [facility] 2020-06-10 2020-06-10 Outpatient MHIE MHIE [id number] Memoria 16:00:00 16:00:00 14 eunice [place] 2020-05-13 2020-05-14 [place] [id number] Memoria 16:00:00 05:59:59 r Urology 12 l Felipe Veloz [facility] 2020-04-15 2020-04-16 Outpatient nullFlavo [facility] [id number] Memoria 16:00:00 05:59:59 r Urology 11 l Felipe Veloz [facility] 2020-03-18 2020-03-18 Outpatient MHIE MHIE [id number] Memoria 09:00:00 09:00:00 09 eunice [place] 2020-02-19 2020-02-20 [place] [id number] Memoria 21:50:00 05:59:59 r Urology 06 l Felipe Veloz [facility] 2020-02-19 2020-02-19 Outpatient MHIE MHIE [id number] Memoria 16:00:00 16:00:00 10 eunice [place] 2020-01-25 2020-01-26 [place] [id number] Memoria 17:00:00 05:59:59 r Urology 07 l Felipe Veloz [facility] 2019-12-25 2019-12-26 [place] [id number] Memoria 21:30:00 04:59:59 r Urology 03 Felipe Veloz [facility] 2019-12-02 2019-12-03 [place] [id number] Memoria 19:00:00 04:59:59 r Primary 05 l [facility] Eduardo Roselia nn 2019-10-31 2019-10-31 Outpatient nullFlavo [facility] [id number] Memoria 00:41:00 04:59:00 r [place] 03 [facility] 2019-10-30 2019-10-30 Outpatient SERGIO LINARES PUL [id number] 19:41:00 19:41:00 [facility] 2019-10-19 2019-10-20 Outpatient nullFlavo [facility] [id number] Memoria 15:00:00 04:59:59 r Urology 04 l Felipe glover [place] 2019-10-14 2019-10-15 [place] [id number] Memoria 20:50:00 04:59:59 r Urology 01 l Felipe glover [place] 2019-09-28 2019-09-28 Outpatient MHIE MHIE [id number] Memoria 15:30:00 15:30:00 02 eunice Elder 2019-09-23 2019-09-24 Outpatient nullFlavo [facility] [id number] Memoria 21:30:00 04:59:59 r Urology 00 l Felipe glover [place] Results Test Description Test Time Test Comments Results Result Comments Source Novel Coronavirus 20182020-12-13 22:34:00 Test Item Value Reference Range Interpretation Comme nts Novel Coronavirus 2018 Negative Negative Posit jennifer results are indicative of the Inhouse (test code = presenc e [id number] RNA, clinical [id number]) correlation wit h patient historyand other diagnosti c information is necessary to de terminepatient infection status. Positiv e results do not rule outbacterial in fection or co-infection with other viru ses. Negative results do not preclude SA RS-CoV-2 infection andshould not b e used as the sole basis for patient man agementdecisions. Negative result s must be combined with otherclinical o bservations, patient history, and ep idemiologicalinformation. Detection of SA RS-CoV-2 RNA may be affected bysamp le collection methods, storage conditi ons, and/or stageof infection. Ivy l RNA mutations, vaccinations, a ntiviraltherapeutics, antibiotics, ch emotherapeutic orimmunosuppres ryan drugs have not been evaluated for e ffectson detection. Results are for the identification of SARS-CoV-2 RNA usingreal-time (RT) polymerase isa n reaction (PCR) technologyfor t he qualitative detection of nucleic acid s from jpmCBMN-VaE-1 virus and diagn osis of SARS-CoV-2 virusinfection. It is an Emergency Use Authorization ( EUA) testauthorized by the U.S. FDA. Novel Coronavirus [id number] 22:33:00 Test Item Value Reference Range Interpretation Comments Novel Coronavirus Negative Negative Positive r esults are 2019 Inhouse (test indicativ e of the presence code = [id number]) ofSARS-CoV -2 RNA, clinical correlation wit h patient historyand othe r diagnostic info rmation is necessary to determinepatien t infection status. Positiv e results do not rule out bacterial infection or co -infection with other viru ses. Negative result s do not preclude SARS-C oV-2 infection andsh ould not be used as the dominga e basis for patient managementdecis ions. Negative result s must be combined with otherclinical observations, p atient history, and epidemiological information . Detection of SARS-CoV-2 RNA may be affe cted bysample collec tion methods, storag e conditions, and /or stageof infection. Ivy l RNA mutations, vacc inations, antiviraltherap eutics, antibiotics, chemotherapeuti c orimmunosuppres ryan drugs have not been e valuated for effectson d etection. Results are for the identification of SARS-CoV-2 RNA usingreal-time (RT) polymerase isa n reaction (PCR) technolog yfor the qualitative det ection of nucleic acids f rom fmwQAOE-MhQ-0 v irus and diagnosis of SA RS-CoV-2 virusinfection. It is an Emergency Use Authorization ( EUA) testauthorized by the U.S. FDA. CBC W/AUTO [id number] 17:10:00 Test Item Value Reference Range Interpretation Comments WHITE BLOOD CELL (test 11.6 K/mm3 4.5-12.5 N code = WBC) RED BLOOD CELL (test code 5.52 mill/mm3 4.0-5.8 N = RBC) HEMOGLOBIN (test code = 14.7 gram/dL 13.0-17.5 N HGB) HEMATOCRIT (test code = 49.1 % 42.0-52.0 N HCT) MEAN CELL VOLUME (test 88.9 fL 80-98 N code = MCV) MEAN CELL HGB (test code 26.6 picogram 27.0-33.0 L = MCH) MEAN CELL HGB 29.9 gram/dL 33.0-36.0 L CONCETRATION (test code = MCHC) RED CELL DISTRIBUTION 14.0 % 11.6-16.2 N WIDTH (test code = RDW) RED CELL DISTRIBUTION 44.9 fL 37.0-51.0 N WIDTH SD (test code = RDW-SD) PLATELET COUNT (test code 393 K/mm3 150-450 N = PLT) MEAN PLATELET VOLUME 9.5 fL 6.7-11.0 N (test code = MPV) NEUTROPHIL % (test code = 67.5 % 39.0-69.0 N NT%) IMMATURE GRANULOCYTE % 0.9 % 0.0-5.0 N (test code = IG%) LYMPHOCYTE % (test code = 19.3 % 25.0-55.0 L LY%) MONOCYTE % (test code = 9.2 % 0.0-10.0 N MO%) EOSINOPHIL % (test code = 2.5 % 0.0-5.0 N EO%) BASOPHIL % (test code = 0.6 % 0.0-1.0 N BA%) NUCLEATED RBC % (test 0.0 % 0-0 N code = NRBC%) NEUTROPHIL # (test code = 7.83 K/mm3 1.8-7.7 H NT#) IMMATURE GRANULOCYTE # 0.11 x10 3/uL 0-0.03 H (test code = IG#) LYMPHOCYTE # (test code = 2.24 K/mm3 1.0-5.0 N LY#) MONOCYTE # (test code = 1.07 K/mm3 0-0.8 H MO#) EOSINOPHIL # (test code = 0.29 K/mm3 0.0-0.5 N EO#) BASOPHIL # (test code = 0.07 K/mm3 0.0-0.2 N BA#) NUCLEATED RBC # (test 0.00 K/mm3 0.0-0.1 N code = NRBC#) MANUAL DIFF REQUIRED NO, ONLY SCAN NEEDED (test code = MDIFF) DIFFERENTIAL [id number] 17:10:00 Test Item Value Reference Range Interpretation Comments STAIN ACCEPTABILITY (test STAIN ACCEPTABLE code = STN ACCEPTABLE) CABOT RINGS (test code = CAB) MORPHOLOGY COMMENT (test code = MOC) PLATELET ESTIMATE (test code ADEQUATE = PLTEST) PLATELET MORPHOLOGY (test CLUMPING PRESENT code = PLTMORPH) POLYCHROMASIA (test code = 2+ POLC) POIKILOCYTOSIS (test code = 1+ POIK) ROULEAUX (test code = ROU) MODERATE CRENATED CELLS (test code = 1+ CREN) BASIC METABOLIC [id number] 16:52:00 Test Item Value Reference Range Interpretation Comments SODIUM (test code = 140 mmol/L 136-145 N NA) POTASSIUM (test code 3.9 mmol/L 3.5-5.1 N = K) CHLORIDE (test code 102.0 mmol/L 98-107 N = CL) CARBON DIOXIDE (test 32.0 mmol/L 21-32 N code = CO2) ANION GAP (test code 9.9 10-20 L = GAP) GLUCOSE (test code = 92 mg/dL 74-106 N GLU) BLOOD UREA NITROGEN 9 mg/dL 7-18 N (test code = BUN) GLOMERULAR > 60 mL/min See_Comment Estimated GFR b y FILTRATION RATE using Modifi ed MDRD (test code = GFR) formula. ronic kidney disease is defined as eith er kidney damageor GFR <60 mL/min/1.73 m2 for >3 months. [Automated mess age] The system [employer] generated this result transmitted ref erence range: >=60. Th e reference range was not used to int erpret this result as normal/abnormal . CREATININE (test 1.20 mg/dL 0.7-1.3 N code = CREAT) BUN/CREATININE RATIO 7.3 10-20 L (test code = BUN/CREA) CALCIUM (test code = 8.8 mg/dL 8.5-10.1 N CA) [id number] 14:45:0029.0[facility] MezwsngDVNNYBTEBA2820-88-24 14:45:00 10.6[facility] MzmawijDJOLJZUZEL0116-86-90 14:45:004.1[facility]annHEMATOLOGY 2020-10-03 14:45:000.7[facility] XrcrzmmMFZGQFCTJN2182-00-15 14:45:002[facility]annCHEM EFGZN2073-91-20 14:45:007.0[facility]annCHEM FVZMG1637-60-20 14:45:26817Eycqdvtj HermannCHEM RYGOC4365-73-01 14:45:0022[facility]annCHEM HEKSN1791-09-53 14:45:001.52[facility]annCHEM QOTWE8343-23-36 14:45:0052 [facility]annCHE[facility] UEXLP2688-44-17 14:45:0061[facility]annCHEM PANEL 2020-10-03 14:45:0014[facility]annCHEM LNZDN5228-22-32 14:45:69352Ionzppad HermannCHEM LCGAX6853-98-73 14:45:004.8[facility]annCHEM CFDOE4051-09-01 14:45:15890Rpcxnjdf HermannCHEM ZNMOJ9660-48-70 14:45:0030[facility]annCHEM UVZLW2036-48-62 14:45:009.4[facility]annCHEM JYCOL2491-93-09 14:45:006.9 [facility]annCHE[facility] CORTC5125-77-30 14:45:004.3[facility]annCHEM PANEL 2020-10-03 14:45:002.6[facility]annCHE[facility] SOMJE5919-95-07 14:45:001.7[facility]annCHE[facility] DJOFH8593-09-89 14:45:000.3[facility]annCHEM XOZPP5304-56-31 14:45:0071[facility]annCHEM NNQWT8219-37-41 14:45:0018[facility]annCHEM MBKPR3157-61-01 14:45:0023[facility] MydqnxzYAOVSIKORK5235-36-68 14:45:009.5 [facility] NqkrmkxXOBPXHFSQC2579-85-60 14:45:005.94[facility]annHEMATOLOGY 2020-10-03 14:45:0017.1[facility] UeokalpYPNWJDOHNF6195-68-15 14:45:0053.3[facility] FwxyyjbIUCMERAOYS6364-64-21 14:45:0089.7[facility] CjltaunJXUYQYYEJV2589-43-87 14:45:00 Test Item Value Reference Range Interpretation Comments MCH (test code = MCH) 28.8 pg 27.0-33.0 [facility] MbrkkwvFAWCZWQQVW9481-55-90 14:45:0032.1[facility]annHEMATOLOGY 2020-10-03 14:45:0012.7[facility] SkxyjabXCSCPFCPFJ0963-42-60 14:45:80038Xpyosigp VgzqctcBQRZHBSOJY8199-47-66 14:45:009.8[facility] LkuauqiSAYONXMTRF5321-41-68 14:45:422375Dydmfzvu VmslnjtKXHADSHYTH3912-23-02 14:45:030194Xsayopak Jerrod TYAEJOREXO1037-55-91 14:45:368920Zvrpvuhl RfkxmmrQBLPBJDHTN2306-88-15 14:45:00 390[facility] XhfbnjaXOVEUERXQA2189-62-25 14:45:0067[facility]annHEMATOLOGY 2020-10-03 14:45:0055.6[facility]annCHEM KXMLC0401-97-55 15:38:006.3[facility]annCHEM SJKDT6967-09-30 15:38:003.8[facility]annCHEM PPRUB1462-57-47 15:38:002.5[facility]annCHEM ZJKCW2618-32-46 15:38:001.5[facility]annCHEM EFBVP9907-63-10 15:38:000.5[facility]annCHEM BEFUL0801-96-07 15:38:000.1 [facility]annCHE[facility] ZKUMK9749-08-49 15:38:000.4[facility] HermannCHEM PANEL 2020-02-08 15:38:0059[facility] HermannCHEM ALUNL1477-63-68 15:38:0022[facility] HermannCHEM CLBDK7028-02-75 15:38:0025[facility] EtdpefuLCPTHOMIVPZTL7220-01-77 15:38:73684Bigitphj KkrwmemAXSLMWEEWA9397-04-41 15:38:0016.2[facility] TACRHWZSHY8980-98-45 15:38:0050.1[facility]
[2021-06-13] MEDS ORDERED: IBUPROFEN 400 MG TAB ONE (23:20)
[2021-06-14 00:18] LABS: Protime INR 1.35
[2021-06-14 00:19] LABS: Absolute Lymphocytes (CBC) 0.9 K/uL (0.7-4.9); Hematocrit 41.4 % (39.6-49.0); Lymphocytes % 8.1 % (15.3-44.8); MPV 7.5 fL (7.6-11.3); RBC Red Blood Cell Count 5.28 M/uL (4.33-5.43)
[2021-06-14 00:34] LABS: Bilirubin Direct 0.1 mg/dL (0-0.2); Bilirubin Total 0.4 mg/dL (0.2-1.0); Magnesium 2.2 mg/dL (1.8-2.4); Potassium 3.4 mmol/L (3.5-5.1); Protein, Total 7.7 g/dL (6.4-8.2)
[2021-06-14] MEDS ORDERED: Levofloxacin500mg IV 500 MG/100 ML BAG IV ONE (00:36)
[2021-06-14] MEDS ORDERED: NA CHLORIDE 0.9% 1,000 ML ONE ×3 (00:36→11:03)
[2021-06-14] MEDS ORDERED: ALBUTEROL 2.5 MG/3 ML NEB SOL ONE (00:36)
--- NOTE | 2021-06-14 01:50 | ER ---
Nurse's Notes [facility] Name: Meliton Morales II Age: 50 yrs Sex: Male : 1970 Arrival Date: 06/13/2021 Time: 20:03 Bed 27 Private MD: Diagnosis: Pneumonia, unspecified organism-Hypoxia Presentation: 06/13 20:48 Chief complaint: Patient states: he has had intermittent fever with chills and sweats, bb fatigue, loss of appetite x 5 days was seen at urgent care and sent to ED. Coronavirus screen: chills, fatigue, fever, Client presents with at least one sign or symptom that may indicate coronavirus-19. Standard/surgical mask placed on the client. Ebola Screen: No symptoms or risks identified at this time. Initial Sepsis Screen: Does the patient meet any 2 criteria? No. Patient's initial sepsis screen is negative. Does the patient have a suspected source of infection? No. Patient's initial sepsis screen is negative. Risk Assessment: Do you want to hurt yourself or someone else? Patient reports no desire to harm self or others. Onset of symptoms was June 08, 2021. 20:48 Method Of Arrival: Ambulatory bb 20:48 Acuity: SHANNAN 3 bb Triage Assessment: 20:50 General: Appears in no apparent distress. obese, Behavior is calm, cooperative. Pain: bb Denies pain. Neuro: Level of Consciousness is awake, alert, obeys commands, Oriented to person, place, time, situation. Cardiovascular: Capillary refill < 3 seconds Patient's skin is warm and dry. Respiratory: Respiratory effort is even, unlabored, Respiratory pattern is regular. GI: No signs and/or symptoms were reported involving the gastrointestinal system. Derm: Skin is pink, warm \\T\\ dry. Musculoskeletal: Circulation, motion, and sensation intact. Historical: - Allergies: 20:50 PENICILLINS; bb - PMHx: 20:50 COPD; Hypercholesterolemia; Hypertensive disorder; Low T; bb - Immunization history:: J\\T\\J and Pfizer. - Social history:: Smoking status: Patient denies any tobacco usage or history of. Screenin/13 00:46 Abuse screen: Denies threats or abuse. Denies injuries from another. Nutritional tw5 screening: No deficits noted. Tuberculosis screening: No symptoms or risk factors identified. Fall Risk IV access (20 points). Assessment: 06/13 23:19 Reassessment: Patient is alert, oriented x 3, equal unlabored respirations, skin bb warm/dry/pink. pt states he thinks temp is going back up, pt medicated per MAR. Dr Resendiz in triage for pt evaluation. 06/14 00:46 General: Reports "I had been dealing with fever and sweats for the past 5 days. I knew tw5 something was wrong and I needed to be seen.". Neuro: Level of Consciousness is awake, alert, obeys commands, Oriented to person, place, time, situation. Respiratory: Reports shortness of breath at rest Airway is patent Trachea midline Breath sounds are coarse bilaterally. 01:53 General: Appears in no apparent distress. Behavior is calm, cooperative, appropriate tw5 for age. 02:43 Reassessment: assumed care of patient at this time. al4 02:52 Reassessment: Tomas GIFTED TEACHER notified of BP 84/56. Verbal orders to finish the current fluids al4 at this time and start 1L NS at 125 ml/hr after current fluids are done. Vital Signs: 06/13 20:48 BP 106 / 79; Pulse 106; Resp 16 S; Temp 98.2(O); Pulse Ox 94% on R/A; Weight 122.47 kg bb (R); Height 5 ft. 10 in. (177.80 cm) (R); Pain 0/10; 23:19 Temp 100.1(O); bb 06/14 00:44 BP 105 / 72; Pulse 106; Resp 20; Temp 98.5; Pulse Ox 98% on R/A; wm 06/13 20:48 Body Mass Index 38.74 (122.47 kg, 177.80 cm) bb ED Course: 06/13 20:03 Patient arrived in ED. ja2 20:50 Triage completed. bb 20:50 Arm band placed on Patient placed in waiting room, Patient notified of wait time. bb Family accompanied patient. 22:20 XRAY Chest (1 view) In Process Unspecified. EDMS 23:28 Sai Resendiz MD is Attending Physician. [facility] 23:53 Daylin Hernandez is Primary Nurse. tw5 06/14 00:21 Inserted Missed attempt(s): 20 gauge in right antecubital area. wm 00:21 Inserted saline lock: 20 gauge in left antecubital area, using aseptic technique. wm 00:32 Blood Culture Adult (2) Sent. tw5 00:33 Basic Metabolic Panel Sent. tw5 00:33 Troponin HS Sent. tw5 00:33 Magnesium Sent. tw5 00:33 LFT's Sent. tw5 00:33 NT PRO-BNP Sent. tw5 00:39 EKG done, by ED staff. wm 00:45 Procalcitonin Sent. tw5 00:46 Awaiting lab results. tw5 00:46 Patient has correct armband on for positive identification. Side rails up X2. Cardiac tw5 monitor on. Pulse ox on. NIBP on. Door closed. Noise minimized. Moved to private room. Warm blanket given. Verbal reassurance given. 01:22 PO fluids given. wm 01:49 Barry Sanders MD is Hospitalizing Provider. mh7 02:45 Paddy Richey MD is Hospitalizing Provider. la1 03:13 No provider procedures requiring assistance completed. Patient admitted, IV remains in al4 place. 04:23 COVID-19/FLU A+B (Document "Date of Onset" if Symptomatic) Sent. al4 Administered Medications: 04 23:19 Drug: Motrin (ibuprofen) 800 mg Route: PO; bb 04 00:45 Drug: LevaQUIN (levofloxacin) 500 mg Volume: 100 ml; Route: IVPB; Infused Over: 60 tw5 mins; Site: left antecubital; 00:45 Drug: Albuterol 2.5 mg Route: Inhalation; tw5 00:46 Drug: NS 0.9% 1000 ml Route: IV; Rate: 1000 ml; Site: left antecubital; tw5 03:13 Not Given (Physician Discretion): NS 0.45 % 1000 ml IV at 125 ml/hr continuous al4 03:13 Drug: NS 0.9% 1000 ml {Note: verbal order by Tomas Ag NP.} Route: IV; Rate: 125 al4 ml/hr; Site: left antecubital; Outcome: 01:50 Decision to Hospitalize by Provider. mh7 03:13 Admitted to ER Hold. Please see [facility] for further documentation. al4 03:13 Condition: stable 03:13 Instructed on the need for admit, Demonstrated understanding of instructions. 16:28 Patient left the ED. ss Signatures: Dispatcher [employer] EDRadha Tesfaye RN RN bb Valarie Lee RN RN ss Tomas Ag, INTELLIGENT SYSTEMS ENGINEER-C INTELLIGENT SYSTEMS ENGINEER-Cla1 Sai Resendiz MD MD 7 Lily Hewitt Jessica ja2 Wood, Tiffany 5 Raymond Handley al4 Corrections: (The following items were deleted from the chart) 03:12 02:52 Reassessment: JP Marin notified of BP 84/56. Verbal orders to finish the current al4 fluids at this time. al4
--- NOTE | 2021-06-14 01:50 | EDPHYS ---
Physician Documentation [facility] Name: Meliton Morales II Age: 50 yrs Sex: Male : 1970 Arrival Date: 06/13/2021 Time: 20:03 Bed 27 Private MD: ED Physician Sai Resendiz HPI: 06/13 23:36 This 50 yrs old Male presents to ER via Ambulatory with complaints of Fever. mh7 23:36 The patient reports fever, not measured (subjective). Onset: The symptoms/episode mh7 began/occurred 5 day(s) ago. Modifying factors: there are no obvious modifying factors. Associated signs and symptoms: Pertinent positives: chills, decreased appetite, myalgias, Pertinent negatives: abdominal pain, altered mental status, arthralgias, backache, chest pain, cough, diarrhea, earache, headache, hemoptysis, nausea, runny nose, sinus congestion, sinus drainage, skin rash, shortness of breath, sore throat, swelling, vomiting. Severity of symptoms: At their worst the symptoms were moderate today, in the emergency department the symptoms have improved moderately. The patient has been recently seen at an urgent care, just prior to arrival, today. Historical: - Allergies: 20:50 PENICILLINS; bb - PMHx: 20:50 COPD; Hypercholesterolemia; Hypertensive disorder; Low T; bb - Immunization history:: J\\T\\J and Pfizer. - Social history:: Smoking status: Patient denies any tobacco usage or history of. ROS: 23:36 Eyes: Negative for injury, pain, redness, and discharge, ENT: Negative for injury, mh7 pain, and discharge, Neck: Negative for injury, pain, and swelling, Cardiovascular: Negative for chest pain, palpitations, and edema, Respiratory: Negative for shortness of breath, cough, wheezing, and pleuritic chest pain, Abdomen/GI: Negative for abdominal pain, nausea, vomiting, diarrhea, and constipation, Back: Negative for injury and pain, : Negative for injury, bleeding, discharge, and swelling, MS/Extremity: Negative for injury and deformity, Skin: Negative for injury, rash, and discoloration, Neuro: Negative for headache, weakness, numbness, tingling, and seizure, Psych: Negative for depression, anxiety, suicide ideation, homicidal ideation, and hallucinations, Allergy/Immunology: Negative for hives, rash, and allergies, Endocrine: Negative for neck swelling, polydipsia, polyuria, polyphagia, and marked weight changes, Hematologic/Lymphatic: Negative for swollen nodes, abnormal bleeding, and unusual bruising. Exam: 23:36 Constitutional: This is a well developed, well nourished patient who is awake, alert, mh7 and in no acute distress. Head/Face: Normocephalic, atraumatic. Eyes: Pupils equal round and reactive to light, extra-ocular motions intact. Lids and lashes normal. Conjunctiva and sclera are non-icteric and not injected. Cornea within normal limits. Periorbital areas with no swelling, redness, or edema. Neck: Trachea midline, no thyromegaly or masses palpated, and no cervical lymphadenopathy. Supple, full range of motion without nuchal rigidity, or vertebral point tenderness. No Meningismus. Chest/axilla: Normal chest wall appearance and motion. Nontender with no deformity. No lesions are appreciated. 23:36 Abdomen/GI: Soft, non-tender, with normal bowel sounds. No distension or tympany. No guarding or rebound. No evidence of tenderness throughout. Back: No spinal tenderness. No costovertebral tenderness. Full range of motion. Skin: Warm, dry with normal turgor. Normal color with no rashes, no lesions, and no evidence of cellulitis. MS/ Extremity: Pulses equal, no cyanosis. Neurovascular intact. Full, normal range of motion. Neuro: Awake and alert, GCS 15, oriented to person, place, time, and situation. Cranial nerves II-XII grossly intact. Motor strength 5/5 in all extremities. Sensory grossly intact. Cerebellar exam normal. Normal gait. Psych: Awake, alert, with orientation to person, place and time. Behavior, mood, and affect are within normal limits. 23:36 Cardiovascular: Rate: tachycardic, Rhythm: regular, Pulses: no pulse deficits are appreciated, Heart sounds: normal, normal S1and S2, Edema: is not appreciated, JVD: is not appreciated. Vital Signs: 20:48 BP 106 / 79; Pulse 106; Resp 16 S; Temp 98.2(O); Pulse Ox 94% on R/A; Weight 122.47 kg bb (R); Height 5 ft. 10 in. (177.80 cm) (R); Pain 0/10; 23:19 Temp 100.1(O); bb 06/14 00:44 BP 105 / 72; Pulse 106; Resp 20; Temp 98.5; Pulse Ox 98% on R/A; wm 06/13 20:48 Body Mass Index 38.74 (122.47 kg, 177.80 cm) bb MDM: 01:47 Differential diagnosis: viral Infection, bacterial infection, URI, bronchitis, mh7 pneumonia. Data reviewed: vital signs, nurses notes, old medical records, lab test result(s), cardiac enzymes, CBC, electrolytes, EKG, radiologic studies, plain films. Data interpreted: Pulse oximetry: on room air is 94 %. Interpretation: hypoxia. Counseling: I had a detailed discussion with the patient and/or guardian regarding: the historical points, exam findings, and any diagnostic results supporting the discharge/admit diagnosis, lab results, radiology results, the need for further work-up and treatment in the hospital. Response to treatment: the patient's symptoms have mildly improved after treatment. 01:50 Patient medically screened. [facility] 06/13 23:30 Order name: Basic Metabolic Panel; Complete Time: 00:45 [facility] 06/13 23:30 Order name: CBC with Diff; Complete Time: 00:45 [facility] 06/13 23:30 Order name: LFT's; Complete Time: 00:45 [facility] 06/13 23:30 Order name: Magnesium; Complete Time: 00:45 [facility] 06/13 23:30 Order name: NT PRO-BNP; Complete Time: 00:45 [facility] 06/13 23:30 Order name: PT-INR; Complete Time: 00:45 [facility] 06/13 23:30 Order name: Troponin HS; Complete Time: 00:45 [facility] 06/13 23:30 Order name: Blood Culture Adult (2) [facility] 06/13 23:30 Order name: Lactate; Complete Time: 00:45 [facility] 06/13 23:30 Order name: Procalcitonin; Complete Time: 00:57 [facility] 06/14 02:52 Order name: COVID-19/FLU A+B (Document "Date of Onset" if Symptomatic) la1 06/14 05:15 Order name: COVID-19/FLU A+B EDMS 06/14 05:26 Order name: CBC with Automated Diff EDIL 06/14 05:35 Order name: Comprehensive Metabolic Panel EDIL 06/13 20:53 Order name: XRAY Chest (1 view) 06/13 23:30 Order name: EKG; Complete Time: 23:31 [facility] 06/13 23:30 Order name: Cardiac monitoring; Complete Time: 00:33 7 06/13 23:30 Order name: EKG - Nurse/Tech; Complete Time: 00:33 [facility] 06/13 23:30 Order name: IV Saline Lock; Complete Time: 00:33 [facility] 06/13 23:30 Order name: Labs collected and sent; Complete Time: 00: [facility] 06/13 23:30 Order name: O2 Per Protocol; Complete Time: 00: [facility] 06/13 23:30 Order name: O2 Sat Monitoring; Complete Time: 00: [facility] 06/14 14:42 Order name: Basic Metabolic Panel EDMS Administered Medications: 06/13 23:19 Drug: Motrin (ibuprofen) 800 mg Route: PO; 06/14 00:45 Drug: LevaQUIN (levofloxacin) 500 mg Volume: 100 ml; Route: IVPB; Infused Over: 60 tw5 mins; Site: left antecubital; 00:45 Drug: Albuterol 2.5 mg Route: Inhalation; tw5 00:46 Drug: NS 0.9% 1000 ml Route: IV; Rate: 1000 ml; Site: left antecubital; tw5 03:13 Not Given (Physician Discretion): NS 0.45 % 1000 ml IV at 125 ml/hr continuous al4 03:13 Drug: NS 0.9% 1000 ml {Note: verbal order by Tomas Ag NP.} Route: IV; Rate: 125 al4 ml/hr; Site: left antecubital; Disposition Summary: 06/14/21 01:50 Hospitalization Ordered Condition: Stable mh7 Problem: new mh7 Symptoms: have improved mh7 Bed/Room Type: Standard [facility] Location: [facility] ER HOLD(06/14/21 01:52) mw Room Assignment: ERHOLD-(06/14/21 01:52) mw Hospitalization Status: Observation(06/14/21 02:43) la1 Provider: Paddy Richey(06/14/21 02:45) la1 Diagnosis - Pneumonia, unspecified organism - Hypoxia mh7 Forms: - Medication Reconciliation Form 7 - SBAR form 7 Signatures: Dispatcher [employer] EDMS Paradise Orantes RN RN Radha Euceda RN RN bb Tomas Ag, DATABASE SOFTWARE TECHNICIAN-C DATABASE SOFTWARE TECHNICIAN-Cla1 Sai Resendiz MD MD 7 Daylin Hernandez tw5 Raymond Handley4 Corrections: (The following items were deleted from the chart) 01:52 01:50 Telemetry/MedSurg (Inpatient) [facility] 01:52 01:50 [facility] 02:43 01:50 Inpatient Admission [facility] la1 02:45 01:50 Barry Sanders [facility] la1
--- NOTE | 2021-06-14 02:56 | P.HP ---
Certification for Inpatient Patient admitted to: Observation With expected LOS: <2 Midnights Patient will require the following post-hospital care: None Practitioner: I am a practitioner with admitting privileges, knowledge of patient current condition, hospital course, and medical plan of care. 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 Patient reports that he went to an urgent care with a checked his vital signs and found to be mildly hypoxic with room air saturations around 88 to 89%. Patient was referred to the emergency department for evaluation his labs were significant for a mild leukocytosis and acute kidney injury his chest x-ray did demonstrate a right upper lobe pneumonia lactic acid was 1.8. ED provider wishes to admit to observation for further evaluation and management of right upper lobe pneumonia, hypoxia. 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 [employer] - Family History Family History: Reviewed- Non-Contributory - Social History Smoking Status: Never smoker Alcohol use: No CD- Drugs: No Caffeine use: Yes Place of Residence: Home <Tomas Ag - Last Filed: 06/14/21 02:53> Date of Service: 06/14/21 <Paddy Richey - Last Filed: 06/14/21 20:52> Review of Systems 10-point ROS is otherwise unremarkable General: Fever, Chills, Sweats, Weakness, Malaise Respiratory: Cough, Shortness of Breath <Tomas Ag - Last Filed: 06/14/21 02:53> Physical Examination - Physical Exam General: Alert, In no apparent distress, Oriented x3 HEENT: Atraumatic, PERRLA, Mucous membr. moist/pink, EOMI, Sclerae nonicteric Neck: Supple, 2+ carotid pulse no bruit, No LAD, Without JVD or thyroid abnormality Respiratory: Clear to auscultation bilaterally, Normal air movement Cardiovascular: Regular rate/rhythm, Normal S1 S2 Gastrointestinal: Normal bowel sounds, No tenderness Musculoskeletal: No tenderness Integumentary: No rashes Neurological: Normal speech, Normal strength at 5/5 x4 extr, Normal tone, Normal affect Lymphatics: No axilla or inguinal lymphadenopathy - Studies Laboratory Data (last 24 hrs) 06/13/21 23:51: PT 14.9 H, INR 1.35 06/13/21 23:51: WBC 11.6 H, Hgb 13.2 L, Hct 41.4, Plt Count 276 06/13/21 23:51: Sodium 131 L, Potassium 3.4 L, BUN 18, Creatinine 1.70 H, Glucose 106, Magnesium 2.2, Total Bilirubin 0.4, AST 35, ALT 42, Alkaline Phosphatase 62 <Tomas Ag - Last Filed: 06/14/21 02:53> - Studies Laboratory Data (last 24 hrs) 06/13/21 23:51: PT 14.9 H, INR 1.35 06/13/21 23:51: WBC 11.6 H, Hgb 13.2 L, Hct 41.4, Plt Count 276 06/13/21 23:51: Sodium 131 L, Potassium 3.4 L, BUN 18, Creatinine 1.70 H, Glucose 106, Magnesium 2.2, Total Bilirubin 0.4, AST 35, ALT 42, Alkaline Phosphatase 62 <Paddy Richey - Last Filed: 06/14/21 20:52> Assessment and Plan - Plan Assessment: Dyspnea, fever, hypoxia secondary to right upper lobe pneumonia with history of COPD Acute kidney injury Hypertension Hyperlipidemia Plan: Dyspnea, fever, hypoxia secondary to right upper lobe pneumonia with history of COPD: Continue antibioticsLevaquin as patient does have penicillin allergy, blood cultures obtained sputum culture ordered. As needed nebulizer treatments we will continue with low-dose p.o. steroids. Daily room air saturations, it was reported that his oxygen level was around 8889 at the urgent care but during his stay in the emergency department his oxygen level has been satisfactory around 94 to 95% on room air. Acute kidney injury: Continue IV fluids overnight recheck labs in the morning. Hypertension: Obtain and continue home medication Hyperlipidemia:Obtain and continue home medication DVT PPX:Lovenox Code status: Full Discharge Plan: Home Plan to discharge in: 24 Hours - Advance Directives Does patient have a Living Will: No Does patient have a Durable POA for Healthcare: No - Code Status/Comfort Care Code Status Assessed: Yes (Full code) Critical Care: No Time Spent Managing Pts Care (In Minutes): 55 <Tomas Ag - Last Filed: 06/14/21 02:53>
[2021-06-14] MEDS: NA CHLORIDE 0.9% 1,000 ML IV SCH ×2 (03:13→11:01)
[2021-06-14 04:08] VITALS: BMI 38.7
[2021-06-14] MEDS ORDERED: IPRATROPIUM BROM 0.5MG/2.5ML NEB PRN (04:14)
[2021-06-14] MEDS ORDERED: BENZONATATE 100 MG CAP PO PRN (04:14)
[2021-06-14] MEDS ORDERED: Levofloxacin500mg IV 500 MG/100 ML BAG IV SCH ×2 (04:14→21:00)
[2021-06-14] MEDS ORDERED: ONDANSETRON 4 MG/2 ML VIAL IV PRN (04:14)
[2021-06-14 05:14] LABS: SARS-COV-2 RT PCR NEGATIVE (NEGATIVE)
[2021-06-14 05:20] LABS: Hematocrit 39.9 % (39.6-49.0); Lymphocytes % 9.7 % (15.3-44.8); MPV 7.1 fL (7.6-11.3); RBC Red Blood Cell Count 5.08 M/uL (4.33-5.43)
[2021-06-14 05:35] LABS: Albumin 2.9 g/dL (3.4-5.0); Bilirubin Total 0.4 mg/dL (0.2-1.0); Potassium 3.7 mmol/L (3.5-5.1); Protein, Total 7.4 g/dL (6.4-8.2)
[2021-06-14] MEDS ORDERED: ALBUTEROL 2.5 MG/3 ML NEB SOL NEB PRN (07:00)
[2021-06-14 07:34] VITALS: TEMP 99.2
[2021-06-14] MEDS ORDERED: NA CHLORIDE 0.9% 500 ML IV ONE (07:55)
[2021-06-14] MEDS ORDERED: ENOXAPARIN 40 MG/0.4 ML SQ SCH (09:00)
[2021-06-14] MEDS ORDERED: predniSONE 20 MG TAB PO SCH (09:00)
[2021-06-14] MEDS ORDERED: predniSONE 20 MG TAB ONE (10:13)
--- NOTE | 2021-06-14 10:46 | RAD REPORT ---
EXAM DESCRIPTION: RAD - Chest Single View - 06/13/2021 10:18 pm CLINICAL HISTORY: 50 years, Male, FEVER COMPARISON: None. FINDINGS: Single view of the chest was obtained portable. No prior films are available for compariso n. The cardiomediastinal silhouette demonstrate to be unremarkable. For heart is not enlarged. The thoracic aorta is unremarkable. Focal area of airspace opacity within the right upper lung zone suspi cious for pneumonia. No significant pleural effusions. The rest of the soft tissue and bony structu res demonstrate to be unremarkable. IMPRESSION: Focal area of airspace opacity right upper lung zone suspicious for pneumonia. Electronically signed by: Thanh Harvey MD 06/13/2021 11:00 PM CDT Due to temporary technical issues with the PACS/Fluency reporting system, reports are being signed by the in house radiologist without review as a courtesy to ensure prompt reporting. The interpreting r adiologist is fully responsible for the content of the report.
--- NOTE | 2021-06-14 10:57 | EKG ---
Test Date: 2021-06-14 Test Time: 00:37:00 Skid Man: MEASUREMENT RESULTS: Intervals: Rate: 98 TX: 148 QRSD: 98 QT: 336 QTc: 428 [place]: P: 72 TX: 148 QRS: 74 T: 63 INTERPRETIVE STATEMENTS: Normal sinus rhythm Normal ECG Compared to ECG 09/27/2020 02:04:14 No significant changes Electronically Signed On 06-14-21 10:57:08 CDT by Keith Frankel
[2021-06-14 11:58] VITALS: BP 113/59
[2021-06-14 14:41] LABS: Potassium 3.9 mmol/L (3.5-5.1)
--- NOTE | 2021-06-14 15:14 | P.DS ---
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 Presented to ED with 5 day h/o fever, cough, shortness of breath. Noted to be hypoxic to 88-89% on room air at an urgent care and referred to our ED for further evaluation. He was found to have a mild leukocytosis and CXR findings concerning for pneumonia. He did not have any noted hypoxia or fever in the ED. He was noted to have DIA and low blood pressure. Hospital Course: Patient was found to have pneumonia with slight expiratory wheeze. Treated with levaquin and steroids with improvement. He remained afebrile. Blood pressure was low - low/normal on presentation and renal function was decreased. Both resolved with IV fluid hydration. (Cr: 1.7 -> 1.2) Patient was feeling better, able to tolerate PO and keep self hydrated. He did not require oxygen supplementation. Deemed stable for discharge home to complete 7 day course of Levaquin for pneumonia. 3 more days of steroids for mild COPD exacerbation. Continue home albuterol inhaler as needed. Follow up with PCP within 3-5 days. Recommend checking blood pressure daily at home. Restart blood pressure medication (olmesartan) once systolic blood pressure > 130 or instructed by primary care doctor. Vital Signs/Physical Exam: Temp Pulse Resp BP Pulse Ox 99.2 F 105 H 20 113/59 L 97 06/14/21 06:40 06/14/21 06:40 06/14/21 06:40 06/14/21 11:57 06/14/21 06:40 General: Alert, In no apparent distress, Oriented x3 HEENT: EOMI, Sclerae nonicteric Neck: Supple, No LAD Respiratory: Crackles/rales (mild in RUL) Cardiovascular: No edema, Regular rate/rhythm Gastrointestinal: Soft and benign, Non-distended, No tenderness Integumentary: No significant lesion, No tenderness/swelling Neurological: Normal speech, Normal strength at 5/5 x4 extr, Normal affect Laboratory Data at Discharge: WBC 10.8 K/uL (4.3-10.9) 06/14/21 05:07 Hgb 12.9 g/dL (13.6-17.9) L 06/14/21 05:07 Hct 39.9 % (39.6-49.0) 06/14/21 05:07 Plt Count 254 K/uL (152-406) 06/14/21 05:07 PT 14.9 SECONDS (9.5-12.5) H 06/13/21 23:51 INR 1.35 06/13/21 23:51 Sodium 132 mmol/L (136-145) L 06/14/21 14:12 Potassium 3.9 mmol/L (3.5-5.1) 06/14/21 14:12 BUN 17 mg/dL (7-18) 06/14/21 14:12 Creatinine 1.20 mg/dL (0.55-1.3) 06/14/21 14:12 Glucose 127 mg/dL (74-106) H 06/14/21 14:12 Magnesium 2.2 mg/dL (1.8-2.4) 06/13/21 23:51 Total Bilirubin 0.4 mg/dL (0.2-1.0) 06/14/21 05:07 AST 34 U/L (15-37) 06/14/21 05:07 ALT 40 U/L (12-78) 06/14/21 05:07 Alkaline Phosphatase 62 U/L (45-117) 06/14/21 05:07 Home Medications: Benzonatate [Tessalon Perle*] 100 mg PO TID PRN 7 Days #21 cap 06/14/21 Olmesartan Medoxomil [Benicar] 20 mg PO DAILY 06/14/21 levoFLOXacin [Levaquin] 750 mg PO DAILY 7 Days #7 tab 06/14/21 predniSONE [Prednisone*] 20 mg PO BID 3 Days #6 tab 06/14/21 New Medications: levoFLOXacin [Levaquin] 750 mg PO DAILY 7 Days #7 tab predniSONE [Prednisone*] 20 mg PO BID 3 Days #6 tab Benzonatate [Tessalon Perle*] 100 mg PO TID PRN 7 Days #21 cap PRN Reason: Cough Physician Discharge Instructions: Patient was found to have pneumonia with slight expiratory wheeze. Treated with levaquin and steroids with improvement. He remained afebrile. Blood pressure was low - low/normal on presentation and renal function was decreased. Both resolved with IV fluid hydration. Patient was feeling better, able to tolerate PO and keep self hydrated. He did not require oxygen supplementation. Deemed stable for discharge home to complete 7 day course of Levaquin for pneumonia. 3 more days of steroids for mild COPD exacerbation. Continue home albuterol inhaler as needed. Follow up with PCP within 3-5 days. Recommend checking blood pressure daily at home. Restart blood pressure medication (olmesartan) once systolic blood pressure > 130 or instructed by primary care doctor. Diet: Regular Activity: Ad nolberto Followup: WONG LINDER [Primary Care Provider] - Time spent managing pt's care (in minutes): 45
[2021-06-14 18:55] VITALS: O2SAT 98
[2021-06-15] MEDS ORDERED: Levofloxacin 750mg IV 750 MG/150 ML BAG IV SCH (09:00)
== END 2021-06-14 16:12 | disposition home or self-care (01) ==
LOC: ER 19:59 → ERHOLD 06-14 02:45
PROVIDERS: ADMIT Hospitalist; ATTEND Hospitalist
DX: J18.9 Pneumonia, unspecified organism (principal); J96.01 Acute respiratory failure with hypoxia; J44.1 Chronic obstructive pulmonary disease with (acute) exacerbation; N17.8 Other acute kidney failure; R50.9 Fever, unspecified; I10 Essential (primary) hypertension; E78.5 Hyperlipidemia, unspecified; I95.9 Hypotension, unspecified; Z88.0 Allergy status to penicillin; Z20.822 Contact with and (suspected) exposure to COVID-19
CPT/HCPCS: 93005; 87040 ×2; 85025 ×2; 80048 ×2; 36415; 83735; 85610; 80076; 83605; 84484; 80053; 84145; 83880; 0240U; 71045; 94010; J7512; J7030 ×3; G0378 ×2